=== PATIENT | female | born 1980 | race Caucasian/White ===

== ENCOUNTER 2018-06-10 13:09 | Day surgery (SDC) | payer OTHER, MEDICAID ==
[2018-06-10] MEDS ORDERED: PROPOFOL 20 ML (14:54)
== END 2018-06-10 15:29 | disposition home or self-care (01) ==
LOC: GIL 13:09
DX: K29.50 Unspecified chronic gastritis without bleeding (principal)
CPT/HCPCS: 43239; 84703; 88305; 88312